=== PATIENT | female | born 1985 | race African-American/Black ===

== ENCOUNTER 2016-11-05 09:16 | Emergency (ER) | payer OTHER ==
[~2016-11-05] VITALS: Ht 170.2 cm; Wt 111.1 kg
[2016-11-05] MEDS ORDERED: ASPIRIN 325 MG TABLET PO ONE (11:00)
[2016-11-05 11:12] LABS: BILIRUBIN,URINE NEGATIVE (NEG); GLUCOSE,URINE NEGATIVE (NEG); NITRITE,URINE NEGATIVE (NEG); PH,URINE 5.5; PROTEIN,URINE NEGATIVE (NEG-TRACE)
[2016-11-05 11:15] LABS: BARBITURATES NEG (NEG); BENZODIAZEPINES NEG (NEG); CANNABINOIDS POS (NEG); COCAINE NEG (NEG); METHADONE NEG (NEG); OPIATES NEG (NEG); PHENCYCLIDINE NEG (NEG)
[2016-11-05 11:23] LABS: BACTERIA,URINE FEW /HPF (0-FEW); SQUAMOUS EPITHELIAL CELL,UR FEW /LPF
[2016-11-05 11:39] LABS: BASO # 0.1 x10^3/uL (0.0-0.2); BASO % 1 % (0-3); EOS % 3 % (0-3); HEMATOCRIT 42.8 % (36.0-47.0); HEMOGLOBIN 14.4 g/dL (12.0-15.5); LYMPH # 2.3 x10^3/uL (1.0-4.8); LYMPH % 29 % (24-48); MEAN CORPUSCULAR HEMOGLOBIN 30 pg (25-35); MEAN CORPUSCULAR HGB CONC 34 g/dL (31-37); MEAN CORPUSCULAR VOLUME 90 fL (79-100); MONO % 4 % (0-9); NEUT % 63 % (31-73); PLATELET COUNT 266 x10^3/uL (140-400); RED BLOOD COUNT 4.76 x10^6/uL (3.50-5.40); RED CELL DISTRIBUTION WIDTH 13.7 % (11.5-14.5); WHITE BLOOD COUNT 8.2 x10^3/uL (4.0-11.0)
--- NOTE | 2016-11-05 11:50 | RAD ---
Exam performed: Acute abdominal series. Clinical indication: Chest and abdominal pain Date of Service: 11/05/16. Comparison: None available Findings: One view chest radiograph reveal a normal cardiomediastinal contour. The lungs are clear. There is a pacemaker in place. Evidence of pleural fluid or free subdiaphragmatic air is absent. The bowel pattern is unremarkable. Scattered stool in the colon. No pathologic calcification or organomegaly is seen. Pelvic phleboliths Impression: Normal appearing acute abdominal series to include one view chest radiograph.
[2016-11-05 11:56] LABS: CALCIUM 9.7 mg/dL (8.5-10.1); CREATININE 0.8 mg/dL (0.6-1.0); GFR 102.6; POTASSIUM 4.8 mmol/L (3.5-5.1)
[2016-11-05 12:03] LABS: ALBUMIN 3.7 g/dL (3.4-5.0); ALBUMIN/GLOBULIN RATIO 0.8 (1.0-1.7); TOTAL BILIRUBIN 0.3 mg/dL (0.2-1.0); TOTAL PROTEIN 8.6 g/dL (6.4-8.2)
[2016-11-05 12:10] LABS: CREATINE KINASE 68 U/L (26-192)
[2016-11-05 12:14] LABS: CKMB MASS < 0.5 ng/mL (0.0-3.6)
--- NOTE | 2016-11-05 12:17 | EKG ---
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
[2016-11-05] MEDS ORDERED: SULF1TAB24 PO (12:40)
--- NOTE | 2016-11-05 12:41 | PHYS DOC ---
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 Patient states she was walking down some steps and she slid and fell hitting her abdomen on the step. Patient stated this happened 3 days ago. Patient states she's had ongoing generalized abdominal pain, flank pain on the left side, she states the pain radiates to her chest. Patient also states she has had generalized abdominal pain radiating to her chest for 2 weeks. She states she has an appointment with her doctor next week. Patient denies any exacerbating or alleviating the pain. She is smiling as I speak to her. Denies any chance she is she states she is currently on her menstrual cycle. Review of Systems Review of Systems Constitutional: Denies fever or chills [] Eyes: Denies change in visual acuity, redness, or eye pain [] HENT: Denies nasal congestion or sore throat [] Respiratory: Denies cough or shortness of breath [] Cardiovascular: Generalized chest pain GI: Generalized abdominal pain : Left flank pain Musculoskeletal: Denies back pain or joint pain [] Integument: Denies rash or skin lesions [] Neurologic: Denies headache, focal weakness or sensory changes [] Endocrine: Denies polyuria or polydipsia [] Current Medications Current Medications Current Medications Medications (Trade) Dose Ordered Sig/[facility] Start Time Stop Time Status Last Admin Dose Admin Aspirin (Odilon Aspirin) 325 mg 1X ONCE 11/05/16 11:00 11/05/16 11:01 DC Allergies Allergies Allergies Coded Allergies Type Severity Reaction Last Updated Verified aspirin Allergy Unknown 11/05/16 Yes lisinopril Adverse Reaction Mild Nausea 11/05/16 No acetaminophen Adverse Reaction Unknown Nausea 11/05/16 No Physical Exam Physical Exam Constitutional: Well developed, well nourished, no acute distress, non-toxic appearance. [] HENT: Normocephalic, atraumatic, bilateral external ears normal, oropharynx moist, no oral exudates, nose normal. [] Eyes: PERRLA, EOMI, conjunctiva normal, no discharge. [] Neck: Normal range of motion, no tenderness, supple, no stridor. [] Cardiovascular:Heart rate regular rhythm, no murmur [] Lungs & Thorax: Bilateral breath sounds clear to auscultation [] Abdomen: Bowel sounds normal, soft, no tenderness, no masses, no pulsatile masses. [] Skin: Warm, dry, no erythema, no rash. [] Back: No tenderness, no CVA tenderness. [] Extremities: No tenderness, no cyanosis, no clubbing, ROM intact, no edema. [] Neurologic: Alert and oriented X 3, normal motor function, normal sensory function, no focal deficits noted. [] Psychologic: Affect normal, judgement normal, mood normal. [] Current Patient Data Vital Signs Vital Signs Date Time Temp Pulse Resp B/P (MAP) Pulse Ox O2 Delivery O2 Flow Rate FiO2 11/05/16 12:02 50 17 103/55 (71) 97 Room Air 11/05/16 10:21 97.9 97.9 Lab Values Laboratory Tests Test 11/05/16 09:55 11/05/16 11:30 Urine Collection Type Void Urine Color Yellow Urine Clarity Clear Urine pH 5.5 Urine Specific [place] 1.020 Urine Protein Negative mg/dL (NEG-TRACE) Urine Glucose (UA) Negative mg/dL (NEG) Urine Ketones (Stick) Negative mg/dL (NEG) Urine Blood Large (NEG) Urine Nitrite Negative (NEG) Urine Bilirubin Negative (NEG) Urine Urobilinogen Dipstick 1.0 mg/dL (0.2 mg/dL) Urine Leukocyte Esterase Small (NEG) Urine RBC 3-5 /HPF (0-2) Urine WBC 1-4 /HPF (0-4) Urine Squamous Epithelial Cells Few /LPF Urine Bacteria Few /HPF (0-FEW) Urine Mucus Slight /LPF Urine Opiates Screen Neg (NEG) Urine Methadone Screen Neg (NEG) Urine Barbiturates Neg (NEG) Urine Phencyclidine Screen Neg (NEG) Urine Amphetamine/Methamphetamine Neg (NEG) Urine Benzodiazepines Screen Neg (NEG) Urine Cocaine Screen Neg (NEG) Urine Cannabinoids Screen Pos (NEG) Urine Ethyl Alcohol Neg (NEG) White Blood Count 8.2 x10^3/uL (4.0-11.0) Red Blood Count 4.76 x10^6/uL (3.50-5.40) Hemoglobin 14.4 g/dL (12.0-15.5) Hematocrit 42.8 % (36.0-47.0) Mean Corpuscular Volume 90 fL (79-100) Mean Corpuscular Hemoglobin 30 pg (25-35) Mean Corpuscular Hemoglobin Concent 34 g/dL (31-37) Red Cell Distribution Width 13.7 % (11.5-14.5) Platelet Count 266 x10^3/uL (140-400) Neutrophils (%) (Auto) 63 % (31-73) Lymphocytes (%) (Auto) 29 % (24-48) Monocytes (%) (Auto) 4 % (0-9) Eosinophils (%) (Auto) 3 % (0-3) Basophils (%) (Auto) 1 % (0-3) Neutrophils # (Auto) 5.1 x10^3uL (1.8-7.7) Lymphocytes # (Auto) 2.3 x10^3/uL (1.0-4.8) Monocytes # (Auto) 0.4 x10^3/uL (0.0-1.1) Eosinophils # (Auto) 0.3 x10^3/uL (0.0-0.7) Basophils # (Auto) 0.1 x10^3/uL (0.0-0.2) Sodium Level 136 mmol/L (136-145) Potassium Level 4.8 mmol/L (3.5-5.1) Chloride Level 104 mmol/L (98-107) Carbon Dioxide Level 26 mmol/L (21-32) Anion Gap 6 (6-14) Blood Urea Nitrogen 12 mg/dL (7-20) Creatinine 0.8 mg/dL (0.6-1.0) Estimated GFR (Cockcroft-Gault) 102.6 BUN/Creatinine Ratio 15 (6-20) Glucose Level 80 mg/dL (70-99) Calcium Level 9.7 mg/dL (8.5-10.1) Total Bilirubin 0.3 mg/dL (0.2-1.0) Aspartate Amino Transferase (AST) 17 U/L (15-37) Alanine Aminotransferase (ALT) 24 U/L (14-59) Alkaline Phosphatase 56 U/L (46-116) Creatine Kinase 68 U/L (26-192) Creatine Kinase MB (Mass) < 0.5 ng/mL (0.0-3.6) Creatine Kinase MB Relative Index 0.7 % (0-4) Troponin I Quantitative < 0.017 ng/mL (0.000-0.055) Total Protein 8.6 g/dL (6.4-8.2) H Albumin 3.7 g/dL (3.4-5.0) Albumin/Globulin Ratio 0.8 (1.0-1.7) L Ethyl Alcohol Level < 10 mg/dL (0-10) Laboratory Tests 11/05/16 11:30 Laboratory Tests 11/05/16 11:30 EKG EKG []11:[address] FAGAN sinus rate them, leftward axis, heart rate 70, QRS interval 94, no STEMI. Interpretation Time: 11:[address] FAGAN sinus rate them, leftward axis, heart rate 70 , QRS interval 94, no STEMI. Radiology/Procedures Radiology/Procedures []PROCEDURE: ACUTE ABDOMEN SERIES Exam performed: Acute abdominal series. Clinical indication: Chest and abdominal pain Date of Service: 11/05/16. Comparison: None available Findings: One view chest radiograph reveal a normal cardiomediastinal contour. The lungs are clear. There is a pacemaker in place. Evidence of pleural fluid or free subdiaphragmatic air is absent. The bowel pattern is unremarkable. Scattered stool in the colon. No pathologic calcification or organomegaly is seen. Pelvic phleboliths Impression: Normal appearing acute abdominal series to include one view chest radiograph. DICTATED and SIGNED BY: JANE DENTON MD DATE: 11/05/16 2749 CC: EDGARDO SANTANA APRN; EZEQUIEL GONZALEZ ~ Course & Med Decision Making Course & Med Decision Making Pertinent Labs and Imaging studies reviewed. (See chart for details) Patient is in the ED with multiple pain related complaints. She states she fell down a couple steps 3 days ago. Patient states denies any loss of consciousness. She has generalized abdominal pain, and flank pain, she states the pain radiates to her chest. 11:[address] FAGAN sinus rate them, leftward axis, heart rate 70 , QRS interval 94, no STEMI. Labs are negative including cardiac workup. Acute abdominal series is negative. Urine noted for marijuana. She also has UTI. Discharged Bactrim for 3 days. Encouraged to follow-up with her own doctor next week. Provided return precautions and discharged in stable condition. Matti Disclaimer Lisaon Disclaimer This electronic medical record was generated, in whole or in part, using a voice recognition dictation system. Departure Departure Impression: Primary Impression: Urinary tract infection Additional Impressions: Contusion Marijuana use Disposition: HOME, SELF-CARE Condition: STABLE Referrals: EZEQUIEL GONZALEZ (PCP) please follow up with your doctor next week Patient Instructions: Contusion, Urinary Tract Infection Additional Instructions: You were seen for multiple contusions after falling. Follow-up with your own doctor next week. Your urine has infection. We put you on antibiotics. Ensure you complete them. Come back to the Ed if symptoms worsen Scripts Sulfamethoxazole/Trimethoprim (BACTRIM DS TABLET) 1 Each Tablet 1 TAB PO BID, #6 TAB Prov: EDGARDO SANTANA APRN 11/05/16 Problem Qualifiers Primary Impression: Urinary tract infection Urinary tract infection type: acute cystitis Hematuria presence: without hematuria Qualified Codes: N30.00 - Acute cystitis without hematuria Additional Impressions: Contusion Encounter type: initial encounter Contusion area: abdominal wall Qualified Codes: S30.1XXA - Contusion of abdominal wall, initial encounter EDGARDO SANTANA APRN November 05, 2016 12:41
[2016-11-05 12:48] VITALS: BP 150/98
== END 2016-11-05 12:48 | disposition home or self-care (01) ==
LOC: ER 11:37
DX: S30.1XXA Contusion of abdominal wall, initial encounter (principal); N30.00 Acute cystitis without hematuria; E78.00 Pure hypercholesterolemia, unspecified; F17.200 Nicotine dependence, unspecified, uncomplicated; F12.90 Cannabis use, unspecified, uncomplicated; Z88.6 Allergy status to analgesic agent; Z88.8 Allergy status to other drugs, medicaments and biological substances; Z95.810 Presence of automatic (implantable) cardiac defibrillator; W10.8XXA Fall (on) (from) other stairs and steps, initial encounter; Y93.01 Activity, walking, marching and hiking; Y92.89 Other specified places as the place of occurrence of the external cause; Y99.8 Other external cause status
CPT/HCPCS: 36415; 74022; 80053; 80305; 80320; 81001; 81025; 82553; 84484; 85027; 93005; G0480; G0481; 99285-25

== ENCOUNTER 2017-05-21 16:50 | Emergency (ER) | payer MEDICARE, OTHER ==
[~2017-05-21] VITALS: Ht 170.2 cm; Wt 111.1 kg
[~2017-05-21 16:50] MED LIST: SULF1TAB24 PO
[2017-05-21 16:55] VITALS: BP 154/91
[2017-05-21] MEDS ORDERED: DOXY100C2 PO (17:12)
--- NOTE | 2017-05-21 17:12 | PHYS DOC ---
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 States she felt it pop today. History of abscess in the past. States mild foul odor and drainage. Describes pain as sharp and rates as 7/10. Denies fever, n/v, chest pain, dizziness, shortness of breath, weakness or headache. Review of Systems Review of Systems Constitutional: Denies fever or chills [] Eyes: Denies change in visual acuity, redness, or eye pain [] HENT: Denies nasal congestion or sore throat [] Respiratory: Denies cough or shortness of breath [] Cardiovascular: No additional information not addressed in HPI [] GI: Denies abdominal pain, nausea, vomiting, bloody stools or diarrhea [] : Denies dysuria or hematuria [] Musculoskeletal: Denies back pain or joint pain [] Integument: Denies rash or skin lesions [] Neurologic: Denies headache, focal weakness or sensory changes [] Endocrine: Denies polyuria or polydipsia [] All other systems were reviewed and found to be within normal limits, except as documented in this note. Allergies Allergies Allergies Coded Allergies Type Severity Reaction Last Updated Verified aspirin Allergy Unknown 11/05/16 Yes lisinopril Adverse Reaction Mild Nausea 11/05/16 No acetaminophen Adverse Reaction Unknown Nausea 11/05/16 No Physical Exam Physical Exam Constitutional: Well developed, well nourished, no acute distress, non-toxic appearance. [] HENT: Normocephalic, atraumatic, bilateral external ears normal, oropharynx moist, no oral exudates, nose normal. [] Eyes: PERRLA, EOMI, conjunctiva normal, no discharge. [] Neck: Normal range of motion, no tenderness, supple, no stridor. [] Cardiovascular:Heart rate regular rhythm, no murmur [] Lungs & Thorax: Bilateral breath sounds clear to auscultation [] Abdomen: Bowel sounds normal, soft, no tenderness, no masses, no pulsatile masses. [] Skin: Warm, dry, 2X1 CM ABSCESS UNDERNEATH RIGHT BREAST. OPEN AND DRAINING. [] Back: No tenderness, no CVA tenderness. [] Extremities: No tenderness, no cyanosis, no clubbing, ROM intact, no edema. [] Neurologic: Alert and oriented X 3, normal motor function, normal sensory function, no focal deficits noted. [] Psychologic: Affect normal, judgement normal, mood normal. [] Current Patient Data Vital Signs Vital Signs Date Time Temp Pulse Resp B/P (MAP) Pulse Ox O2 Delivery O2 Flow Rate FiO2 05/21/17 16:55 98.4 77 16 100 Room Air 98.4 EKG EKG [] Radiology/Procedures Radiology/Procedures [] Course & Med Decision Making Course & Med Decision Making Pertinent Labs and Imaging studies reviewed. (See chart for details) []Abscess open and draining. Patient states she has taken doxycycline in the past with improvement. Will prescribe doxycycline. Discussed symptomatic treatment. Discussed follow-up and reasons to return to the ED. Patient understands and agrees with plan. Dragon Disclaimer Dragon Disclaimer This electronic medical record was generated, in whole or in part, using a voice recognition dictation system. Departure Departure Impression: Primary Impression: Abscess Disposition: 01 HOME, SELF-CARE Condition: STABLE Referrals: EZEQUIEL GONZALEZ (PCP) MICHAEL IBANEZ MD Patient Instructions: Abscess Scripts Tramadol Hcl (TRAMADOL HCL) 50 Mg Tablet 1 TAB PO PRN Q6HRS, #12 TAB Prov: DEVIN HOLDEN 05/21/17 Doxycycline Hyclate (DOXYCYCLINE HYCLATE) 100 Mg Capsule 1 CAP PO BID, #28 CAP Prov: DEVIN HOLDEN 05/21/17 DEVIN HOLDEN May 21, 2017 17:12
[2017-05-21] MEDS ORDERED: TRAM50TA PO (17:31)
== END 2017-05-21 17:28 | disposition home or self-care (01) ==
LOC: ER 16:50
DX: N61.1 Abscess of the breast and nipple (principal); E78.00 Pure hypercholesterolemia, unspecified; Z88.6 Allergy status to analgesic agent; Z88.8 Allergy status to other drugs, medicaments and biological substances
CPT/HCPCS: 99283

== ENCOUNTER 2019-02-20 11:00 | Emergency (ER) | payer MEDICAID, MEDICARE, OTHER ==
[~2019-02-20] VITALS: Ht 172.7 cm; Wt 111.1 kg
[~2019-02-20 11:00] MED LIST changes: +DOXY100C2 PO; +TRAM50TA PO
[2019-02-20] MEDS ORDERED: MORPHINE SULFATE 2 MG/ML VIAL. IV ONE (11:45)
--- NOTE | 2019-02-20 11:46 | EKG ---
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
[2019-02-20 12:30] LABS: BARBITURATES NEG (NEG); BENZODIAZEPINES NEG (NEG); CANNABINOIDS POS (NEG); COCAINE NEG (NEG); METHADONE NEG (NEG); OPIATES NEG (NEG); PHENCYCLIDINE NEG (NEG)
[2019-02-20 12:35] LABS: AMPHETAMINE/METHAMPHETAMINE NEG (NEG)
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
[2019-02-20 13:01] LABS: BASO # 0.1 x10^3/uL (0.0-0.2); BASO % 1 % (0-3); EOS # 0.2 x10^3/uL (0.0-0.7); EOS % 2 % (0-3); HEMATOCRIT 36.4 % (36.0-47.0); HEMOGLOBIN 12.4 g/dL (12.0-15.5); LYMPH # 1.9 x10^3/uL (1.0-4.8); LYMPH % 25 % (24-48); MEAN CORPUSCULAR HEMOGLOBIN 30 pg (25-35); MEAN CORPUSCULAR HGB CONC 34 g/dL (31-37); MEAN CORPUSCULAR VOLUME 87 fL (79-100); MONO # 0.5 x10^3/uL (0.0-1.1); MONO % 7 % (0-9); NEUT % 66 % (31-73); PLATELET COUNT 261 x10^3/uL (140-400); RED CELL DISTRIBUTION WIDTH 13.6 % (11.5-14.5); WHITE BLOOD COUNT 7.6 x10^3/uL (4.0-11.0)
[2019-02-20 13:11] LABS: PROTHROMBIN TIME PATIENT 14.7 SEC (11.7-14.0)
[2019-02-20 13:21] LABS: CALCIUM 8.6 mg/dL (8.5-10.1); GFR 78.2; POTASSIUM 3.6 mmol/L (3.5-5.1)
[2019-02-20 13:25] LABS: ALBUMIN 3.5 g/dL (3.4-5.0); ALBUMIN/GLOBULIN RATIO 0.8 (1.0-1.7); MAGNESIUM 1.8 mg/dL (1.8-2.4); TOTAL BILIRUBIN 0.3 mg/dL (0.2-1.0); TOTAL PROTEIN 7.9 g/dL (6.4-8.2)
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
[2019-02-20 14:29] VITALS: BP 140/81
== END 2019-02-20 14:39 | disposition home or self-care (01) ==
LOC: ER 11:00
DX: M54.5 Low back pain (principal); E78.00 Pure hypercholesterolemia, unspecified; I11.9 Hypertensive heart disease without heart failure; Z88.6 Allergy status to analgesic agent; Z88.8 Allergy status to other drugs, medicaments and biological substances; V43.52XA Car driver injured in collision with other type car in traffic accident, initial encounter; Y93.89 Activity, other specified; Y92.410 Unspecified street and highway as the place of occurrence of the external cause; Y99.8 Other external cause status
CPT/HCPCS: 36415; 71045; 72131; 80053; 80307; 81025; 82553; 83735; 83880; 84484; 85025; 85610; 93005; 96374; 99285; J2270